=== PATIENT | female | born 1935 | race Caucasian/White ===

== ENCOUNTER 2017-01-15 01:52 | Emergency (ER) | payer OTHER ==
[~2017-01-15] VITALS: Ht 157.5 cm; Wt 64.8 kg
[2017-01-15 02:56] LABS: CHLORIDE 103 mEq/L (99-109); SODIUM 139 mEq/L (136-147)
[2017-01-15 02:58] LABS: GLUCOSE 116 mg/dL (70-99)
[2017-01-15 02:59] LABS: ANION GAP 14 MEQ/L (2-14)
[2017-01-15 03:00] LABS: TOTAL BILIRUBIN 0.7 mg/dL (0.0-1.0)
[2017-01-15 03:01] LABS: ALKALINE PHOSPHATASE 74 IU/L (3-129)
[2017-01-15 03:02] LABS: GFR ESTIMATE (CALCULATED) > 59 mL/min/
[2017-01-15 03:03] LABS: UREA NITROGEN (BUN) 19 mg/dL (9-23)
[2017-01-15 03:05] LABS: LIPASE 41 U/L (1.0-51.0)
[2017-01-15 03:06] LABS: HEMATOCRIT 32.1 % (36.0-46.0); MCH 32.7 PG (29.0-34.0); MCHC 33.6 G/DL (30.0-36.0); MCV 97.3 FL (83-99); MEAN PLAT.VOLUME 9.5 uM^3 (9.5-12.4); PLATELET COUNT 128 K/uL (156-360); RBC DIS.WIDTH-CV 12.3 % (11.8-14.6); RBC DIS.WIDTH-SD 44.3 % (39-53)
[2017-01-15 03:08] LABS: TROP-I INTERPRETATION NEGATIVE; TROPONIN-I < 0.01 ng/mL (0.0-0.30)
[2017-01-15 03:58] LABS: ADD MIUA? YES; BILIRUBIN NEGATIVE; BLOOD MODERATE; COLOR STRAW ((YELLOW)); GLUCOSE (STRIP) NEGATIVE; KETONES NEGATIVE; LEUKOCYTES NEGATIVE; NITRITE NEGATIVE; PROTEIN (STRIP) NEGATIVE; UROBILINOGEN 0.2 MG/DL (0.2-1.0)
[2017-01-15 04:00] LABS: BACTERIA NONE SEEN /HPF; EPITHELIAL CELLS NONE SEEN /HPF; MUCUS NONE SEEN /LPF; RED BLOOD CELLS 0-5 /HPF (0-5); UCUL ADDED? NO; WHITE BLOOD CELLS 0-5 /HPF (0-5)
[2017-01-15 05:33] VITALS: BP 134/99
[2017-01-15] MEDS ORDERED: UNABLE TO OBTAIN (05:34)
== END 2017-01-15 05:40 | disposition home or self-care (01) ==
LOC: EME 01:52
PROVIDERS: Emergency Medicine
DX: K29.00 Acute gastritis without bleeding (principal); D64.9 Anemia, unspecified; I10 Essential (primary) hypertension; K21.9 Gastro-esophageal reflux disease without esophagitis; Z85.3 Personal history of malignant neoplasm of breast; Z85.42 Personal history of malignant neoplasm of other parts of uterus; Z90.710 Acquired absence of both cervix and uterus
CPT/HCPCS: 71020; 74177; 80053; 81003; 83605; 83690; 84484; 85027; 93005; 99281; 99285; J7030; S0028

== ENCOUNTER 2017-01-24 05:52 | Inpatient (IN) | payer OTHER ==
[~2017-01-24] VITALS: Ht 157.5 cm; Wt 63.1 kg
[~2017-01-24 05:52] MED LIST: UNABLE TO OBTAIN
[2017-01-24 06:43] LABS: HEMATOCRIT 35.8 % (36.0-46.0); MCH 33.2 PG (29.0-34.0); MCHC 33.8 G/DL (30.0-36.0); MCV 98.4 FL (83-99); MEAN PLAT.VOLUME 10.5 uM^3 (9.5-12.4); PLATELET COUNT 119 K/uL (156-360); RBC DIS.WIDTH-CV 12.5 % (11.8-14.6); RBC DIS.WIDTH-SD 45.3 % (39-53); RED BLOOD COUNT 3.64 M/uL (3.80-5.20); WHITE BLOOD COUNT 12.3 K/uL (4.1-10.2)
[2017-01-24 07:04] LABS: AMYLASE 44 IU/L (1-118); ANION GAP 13 MEQ/L (2-14); CHLORIDE 101 MEQ/L (99-109); POTASSIUM 3.6 MEQ/L (3.7-5.4); SAMPLE HEMOLYSIS CHECK 0; SAMPLE ICTERIC CHECK 1; SAMPLE LIPEMIA CHECK 0; SODIUM 136 MEQ/L (136-147); TOTAL BILIRUBIN 3.9 MG/DL (0.0-1.0)
[2017-01-24 07:10] LABS: ALKALINE PHOSPHATASE 149 IU/L (3-129); GFR ESTIMATE (CALCULATED) > 59 mL/min/; GLUCOSE 133 mg/dL (70-99); LIPASE 9 U/L (1.0-51.0); UREA NITROGEN (BUN) 11 mg/dL (9-23)
[2017-01-24 07:14] LABS: TROP-I INTERPRETATION NEGATIVE; TROPONIN-I 0.05 ng/mL (0.0-0.30)
[2017-01-24 07:50] LABS: ADD MIUA? YES; BILIRUBIN NEGATIVE; BLOOD MODERATE; COLOR AMBER ((YELLOW)); GLUCOSE (STRIP) NEGATIVE; KETONES 5; LEUKOCYTES NEGATIVE; NITRITE NEGATIVE; PROTEIN (STRIP) 30; SPECIFIC GRAVITY 1.015 (1.000-1.030)
[2017-01-24 08:06] LABS: BACTERIA RARE /HPF; EPITHELIAL CELLS RARE /HPF; MUCUS TRACE /LPF; RED BLOOD CELLS 20-30 /HPF (0-5); UCUL ADDED? NO; WHITE BLOOD CELLS NONE SEEN /HPF (0-5)
[2017-01-24] MEDS ORDERED: LEVOTHYROXINE75 MCG PO (10:20)
[2017-01-24] MEDS ORDERED: OMEPRAZOLE20 MG PO (10:21)
[2017-01-24] MEDS ORDERED: METOPROLOL SUCC25 MG PO (10:22)
[2017-01-24] MEDS ORDERED: AMLODIPINE BESYL5 MG PO (10:23)
[2017-01-24] MEDS ORDERED: VITAMIN B-12500 MC5 SL (10:29)
[2017-01-24 11:19] VITALS: BP 121/58
[2017-01-24 12:12] VITALS: BP 121/58
[2017-01-24 13:55] LABS: TROP-I INTERPRETATION NEGATIVE; TROPONIN-I 0.06 ng/mL (0.0-0.30)
[2017-01-24 17:36] VITALS: BP 128/54
[2017-01-24 19:27] LABS: TROP-I INTERPRETATION NEGATIVE; TROPONIN-I 0.03 ng/mL (0.0-0.30)
[2017-01-24 20:08] VITALS: BP 147/68
[2017-01-25 00:11] VITALS: BP 101/56
[2017-01-25 03:46] VITALS: BP 110/53
[2017-01-25 05:35] LABS: POINT-OF-CARE METER ID UU14208750
[2017-01-25 07:12] LABS: HEMATOCRIT 30.8 % (36.0-46.0); MCH 34.1 PG (29.0-34.0); MCHC 33.8 G/DL (30.0-36.0); MEAN PLAT.VOLUME 10.5 uM^3 (9.5-12.4); PLATELET COUNT 118 K/uL (156-360); RBC DIS.WIDTH-CV 13.1 % (11.8-14.6); RBC DIS.WIDTH-SD 48.6 % (39-53); RED BLOOD COUNT 3.05 M/uL (3.80-5.20); WHITE BLOOD COUNT 9.4 K/uL (4.1-10.2)
[2017-01-25 07:33] VITALS: BP 118/56
[2017-01-25 07:39] LABS: ALKALINE PHOSPHATASE 128 IU/L (3-129); ANION GAP 10 MEQ/L (2-14); CHLORIDE 108 MEQ/L (99-109); DIRECT BILIRUBIN 1.8 mg/dL (0.0-0.3); GFR ESTIMATE (CALCULATED) > 59 mL/min/; GLUCOSE 81 mg/dL (70-99); POTASSIUM 4.1 MEQ/L (3.7-5.4); SAMPLE HEMOLYSIS CHECK 0; SAMPLE ICTERIC CHECK 1; SAMPLE LIPEMIA CHECK 0; SODIUM 140 MEQ/L (136-147); UREA NITROGEN (BUN) 14 mg/dL (9-23)
[2017-01-25 11:35] VITALS: BP 138/63
[2017-01-25 12:09] LABS: POINT-OF-CARE METER ID UU14208750
[2017-01-25 15:23] VITALS: BP 127/60
[2017-01-25 19:25] VITALS: BP 131/62
[2017-01-26 00:36] VITALS: BP 132/66
[2017-01-26 03:33] VITALS: BP 117/56
[2017-01-26 07:57] VITALS: BP 100/64
[2017-01-26 08:15] LABS: EOSINOPHIL COUNT 0.2 K/uL (0-0.3); HEMATOCRIT 32.8 % (36.0-46.0); IMMATURE GRANULOCYTE (%) 0.3 % (0.0-0.7); INSTRUMENT ABS NEUTROPHIL CT 5.3 K/uL; LYMPHOCYTE COUNT 0.8 K/uL (1.0-2.8); MCHC 32.9 G/DL (30.0-36.0); MCV 100.3 FL (83-99); MEAN PLAT.VOLUME 10.3 uM^3 (9.5-12.4); MONOCYTE (%) 7.4 % (3-12); MONOCYTE COUNT 0.5 K/uL (0-0.8); NEUTROPHIL (%) 76.8 % (45-76); NEUTROPHIL COUNT 5.3 K/uL (1.8-6.4); PLATELET COUNT 151 K/uL (156-360); RBC DIS.WIDTH-CV 13.1 % (11.8-14.6); RBC DIS.WIDTH-SD 48.2 % (39-53); RED BLOOD COUNT 3.27 M/uL (3.80-5.20); WHITE BLOOD COUNT 6.9 K/uL (4.1-10.2)
[2017-01-26 08:39] LABS: ALKALINE PHOSPHATASE 112 IU/L (3-129); ANION GAP 8 MEQ/L (2-14); CHLORIDE 107 MEQ/L (99-109); GFR ESTIMATE (CALCULATED) > 59 mL/min/; GLUCOSE 91 mg/dL (70-99); SAMPLE HEMOLYSIS CHECK 0; SAMPLE ICTERIC CHECK 0; SAMPLE LIPEMIA CHECK 0; SODIUM 141 MEQ/L (136-147); UREA NITROGEN (BUN) 9 mg/dL (9-23)
[2017-01-26 11:26] VITALS: BP 102/60
[2017-01-26] MEDS ORDERED: CIPRO250 MG PO (13:43)
[2017-01-26] MEDS ORDERED: FLAGYL500 MG PO (13:44)
[2017-01-26 14:20] LABS: BACTERIA NONE SEEN /HPF; EPITHELIAL CELLS RARE /HPF; MUCUS NONE SEEN /LPF; RED BLOOD CELLS 0-5 /HPF (0-5); WHITE BLOOD CELLS 0-5 /HPF (0-5)
== END 2017-01-26 14:48 | disposition home or self-care (01) | DRG 446 ==
LOC: EME 05:52 → EDOF 09:26 → 2EAST 09:26 → ENRESERV 09:30 → EDOF 09:35 → ENRESERV 10:12 → 2EASTP 10:58 → 2EAST 01-25 02:19
PROVIDERS: Hospitalist; Internal Medicine; Nurse Practitioner Family; Physician Assistant; Surgery
DX: K80.00 Calculus of gallbladder with acute cholecystitis without obstruction (principal); E87.6 Hypokalemia; D69.6 Thrombocytopenia, unspecified; I11.9 Hypertensive heart disease without heart failure; I35.0 Nonrheumatic aortic (valve) stenosis; R74.0 Nonspecific elevation of levels of transaminase and lactic acid dehydrogenase [LDH]; R94.31 Abnormal electrocardiogram [ECG] [EKG]; K21.9 Gastro-esophageal reflux disease without esophagitis; E03.9 Hypothyroidism, unspecified; Z23 Encounter for immunization; Z85.3 Personal history of malignant neoplasm of breast; Z85.42 Personal history of malignant neoplasm of other parts of uterus; Z87.442 Personal history of urinary calculi; Z90.12 Acquired absence of left breast and nipple; Z90.710 Acquired absence of both cervix and uterus; Z82.49 Family history of ischemic heart disease and other diseases of the circulatory system; Z82.5 Family history of asthma and other chronic lower respiratory diseases; Z80.3 Family history of malignant neoplasm of breast
CPT/HCPCS: 71020; 74177; 74181; 80048; 80053; 80076; 81003; 81015; 82150; 82607; 82746; 82948; 83690; 84484; 85025; 85027; 90686; 93005; 99281; 99285; J0744; J2270; J2405; J7030; S0030

== ENCOUNTER 2017-03-01 05:34 | Emergency (ER) | payer OTHER ==
[~2017-03-01] VITALS: Ht 157.5 cm; Wt 58.3 kg
[~2017-03-01 05:34] MED LIST changes: +AMLODIPINE BESYL5 MG PO; +CIPRO250 MG PO; +FLAGYL500 MG PO; +LEVOTHYROXINE75 MCG PO; +METOPROLOL SUCC25 MG PO; +OMEPRAZOLE20 MG PO; +VITAMIN B-12500 MC5 SL
[2017-03-01 06:14] LABS: HEMATOCRIT 31.8 % (36.0-46.0); MCH 33.1 PG (29.0-34.0); MCV 100.3 FL (83-99); PLATELET COUNT 110 K/uL (156-360); RBC DIS.WIDTH-CV 13.8 % (11.8-14.6); RBC DIS.WIDTH-SD 51.4 % (39-53); RED BLOOD COUNT 3.17 M/uL (3.80-5.20); WHITE BLOOD COUNT 5.4 K/uL (4.1-10.2)
[2017-03-01 06:29] LABS: GLUCOSE 105 mg/dL (70-99)
[2017-03-01 06:30] LABS: ANION GAP 11 MEQ/L (2-14)
[2017-03-01 06:31] LABS: TOTAL BILIRUBIN 0.8 mg/dL (0.0-1.0)
[2017-03-01 06:32] LABS: ALKALINE PHOSPHATASE 59 IU/L (3-129)
[2017-03-01 06:33] LABS: GFR ESTIMATE (CALCULATED) > 59 mL/min/
[2017-03-01 06:34] LABS: UREA NITROGEN (BUN) 10 mg/dL (9-23)
[2017-03-01 06:36] LABS: LIPASE 28 U/L (1.0-51.0)
[2017-03-01 06:39] LABS: ADD MIUA? YES; BILIRUBIN NEGATIVE; BLOOD LARGE; COLOR AMBER ((YELLOW)); GLUCOSE (STRIP) NEGATIVE; KETONES NEGATIVE; LEUKOCYTES NEGATIVE; NITRITE NEGATIVE; PROTEIN (STRIP) 100; SPECIFIC GRAVITY 1.016 (1.000-1.030); UROBILINOGEN 0.2 MG/DL (0.2-1.0)
[2017-03-01 06:48] LABS: TROP-I INTERPRETATION NEGATIVE; TROPONIN-I < 0.01 ng/mL (0.0-0.30)
[2017-03-01 07:02] LABS: EPITHELIAL CELLS 1+ /HPF
[2017-03-01 07:03] LABS: BACTERIA NONE SEEN /HPF; CASTS NONE SEEN /LPF; CRYSTALS NONE SEEN; MUCUS NONE SEEN /LPF; OTHER BUDDING YEAST FEW; RED BLOOD CELLS TNTC /HPF (0-5); UCUL ADDED? YES; WHITE BLOOD CELLS 0-5 /HPF (0-5)
[2017-03-01] MEDS ORDERED: PERCOCET 5/31 TABLET PO (07:34)
[2017-03-01] MEDS ORDERED: FLOMAX0.4 MG PO (07:34)
[2017-03-01] MEDS ORDERED: ZOFRAN ODT4 MG PO (07:34)
[2017-03-01 08:20] LABS: CHLORIDE 108 mEq/L (99-109); POTASSIUM 3.2 mEq/L (3.7-5.4); SODIUM 143 mEq/L (136-147)
[2017-03-01 08:36] VITALS: BP 111/52
== END 2017-03-01 08:59 | disposition home or self-care (01) ==
LOC: EME 05:34
DX: N20.0 Calculus of kidney (principal); K21.9 Gastro-esophageal reflux disease without esophagitis; I10 Essential (primary) hypertension
CPT/HCPCS: 74177; 80053; 81003; 83690; 84484; 85027; 87086; 99281; 99285; J2405; J3010; J7030

== ENCOUNTER 2017-08-15 02:00 | Observation (INO) | payer OTHER ==
[~2017-08-15] VITALS: Ht 157.5 cm; Wt 59.4 kg
[~2017-08-15 02:00] MED LIST changes: +AMLOD-VALSA-HC1 EAC2 PO; +ASPIRIN81 M2 PO; +FLOMAX0.4 MG PO; +PERCOCET 5/31 TABLET PO; +SENNA8.6 MG PO; +ZOFRAN ODT4 MG PO
[2017-08-15 02:47] LABS: BASOPHIL (%) 0.6 % (0-1); BASOPHIL COUNT 0.1 K/uL (0-0.1); EOSINOPHIL (%) 8.5 % (0-5); EOSINOPHIL COUNT 0.7 K/uL (0-0.3); HEMATOCRIT 25.9 % (36.0-46.0); HEMOGLOBIN 8.5 G/DL (11.9-15.5); IMMATURE GRANULOCYTE (%) 0.4 % (0.0-0.7); LYMPHOCYTE (%) 18.4 % (15-42); LYMPHOCYTE COUNT 1.5 K/uL (1.0-2.8); MCH 33.6 PG (29.0-34.0); MCHC 32.8 G/DL (30.0-36.0); MCV 102.4 FL (83-99); MONOCYTE (%) 8.3 % (3-12); MONOCYTE COUNT 0.7 K/uL (0-0.8); NEUTROPHIL (%) 63.8 % (45-76); NEUTROPHIL COUNT 5.4 K/uL (1.8-6.4); RBC DIS.WIDTH-CV 15.8 % (11.8-14.6); RBC DIS.WIDTH-SD 59.1 % (39-53); RED BLOOD COUNT 2.53 M/uL (3.80-5.20); WHITE BLOOD COUNT 8.4 K/uL (4.1-10.2)
[2017-08-15 02:56] LABS: ALBUMIN 3.6 g/dL (3.2-4.8); CHLORIDE 106 mEq/L (99-109); POTASSIUM 3.9 mEq/L (3.7-5.4); SODIUM 138 mEq/L (136-147)
[2017-08-15 02:58] LABS: GLUCOSE 105 mg/dL (70-99)
[2017-08-15 02:59] LABS: TOTAL PROTEIN 6.7 g/dL (6.4-8.3)
[2017-08-15 03:00] LABS: TOTAL BILIRUBIN 0.6 mg/dL (0.0-1.0)
[2017-08-15 03:02] LABS: ALKALINE PHOSPHATASE 76 IU/L (3-129); CREATININE 0.9 mg/dL (0.6-1.3); GFR ESTIMATE (CALCULATED) > 59 mL/min/
[2017-08-15 03:03] LABS: UREA NITROGEN (BUN) 25 mg/dL (9-23)
[2017-08-15 03:04] LABS: AST (GOT) 20 IU/L (2-34)
[2017-08-15 03:04] LABS: INTER. NORMALIZED RATIO 1.1
[2017-08-15 03:05] LABS: ALT (GPT) 10 IU/L (3-49)
[2017-08-15 03:06] LABS: PTT 31.5 SEC (25-37)
[2017-08-15 03:49] LABS: IMM.PLATELET FRACTION 4.2 (1-7); PLAT.SUFFICIENCY VERY DECREASED; PLATELET COUNT 46 K/uL (156-360)
[2017-08-15] MEDS ORDERED: ATARAX,VISTARIL25 MG PO (06:04)
[2017-08-15] MEDS ORDERED: CEPHALEXIN500 MG PO (06:05)
[2017-08-15 07:36] VITALS: BP 123/59
[2017-08-15 08:19] VITALS: BP 120/53
[2017-08-15 11:00] VITALS: BP 145/71
[2017-08-15] MEDS ORDERED: B-121000 MC2 PO (12:38)
[2017-08-15] MEDS ORDERED: CALCIUM 600 +1 EA12 PO (12:38)
[2017-08-15] MEDS ORDERED: ONCE DAILY1 EACH PO (12:38)
[2017-08-15 16:46] VITALS: BP 137/74
[2017-08-15 20:00] VITALS: BP 126/68
[2017-08-15 23:19] VITALS: BP 101/50
[2017-08-16 07:21] VITALS: BP 116/58
[2017-08-16 11:56] VITALS: BP 125/74
[2017-08-16 17:45] LABS: BASOPHIL COUNT 0.1 K/uL (0-0.1); EOSINOPHIL (%) 9.9 % (0-5); EOSINOPHIL COUNT 0.8 K/uL (0-0.3); HEMATOCRIT 27.4 % (36.0-46.0); HEMOGLOBIN 8.9 G/DL (11.9-15.5); IMMATURE GRANULOCYTE (%) 0.3 % (0.0-0.7); LYMPHOCYTE COUNT 1.6 K/uL (1.0-2.8); MCH 33.2 PG (29.0-34.0); MCHC 32.5 G/DL (30.0-36.0); MCV 102.2 FL (83-99); MONOCYTE (%) 8.2 % (3-12); MONOCYTE COUNT 0.7 K/uL (0-0.8); NEUTROPHIL (%) 60.6 % (45-76); NEUTROPHIL COUNT 4.8 K/uL (1.8-6.4); PLATELET COUNT 58 K/uL (156-360); RBC DIS.WIDTH-SD 58.6 % (39-53); RED BLOOD COUNT 2.68 M/uL (3.80-5.20); WHITE BLOOD COUNT 7.9 K/uL (4.1-10.2)
[2017-08-16] MEDS ORDERED: DIFLUCAN200 MG PO (18:51)
[2017-08-16] MEDS ORDERED: CIPRO250 MG PO (18:52)
[2017-08-16 20:07] VITALS: BP 150/66
[2017-08-17 04:06] VITALS: BP 122/64
[2017-08-17 06:06] LABS: BASOPHIL (%) 0.8 % (0-1); BASOPHIL COUNT 0.1 K/uL (0-0.1); EOSINOPHIL (%) 9.7 % (0-5); EOSINOPHIL COUNT 0.7 K/uL (0-0.3); HEMATOCRIT 24.9 % (36.0-46.0); HEMOGLOBIN 8.1 G/DL (11.9-15.5); IMMATURE GRANULOCYTE (%) 0.1 % (0.0-0.7); LYMPHOCYTE (%) 15.5 % (15-42); LYMPHOCYTE COUNT 1.2 K/uL (1.0-2.8); MCH 33.1 PG (29.0-34.0); MCHC 32.5 G/DL (30.0-36.0); MCV 101.6 FL (83-99); MONOCYTE (%) 7.2 % (3-12); MONOCYTE COUNT 0.5 K/uL (0-0.8); NEUTROPHIL (%) 66.7 % (45-76); PLATELET COUNT 58 K/uL (156-360); RBC DIS.WIDTH-CV 15.8 % (11.8-14.6); RBC DIS.WIDTH-SD 59.1 % (39-53); RED BLOOD COUNT 2.45 M/uL (3.80-5.20); WHITE BLOOD COUNT 7.5 K/uL (4.1-10.2)
[2017-08-17 06:28] LABS: CHLORIDE 108 MEQ/L (99-109); CREATININE 0.8 MG/DL (0.6-1.3); GFR ESTIMATE (CALCULATED) > 59 mL/min/; GLUCOSE 92 mg/dL (70-99); SODIUM 139 MEQ/L (136-147); UREA NITROGEN (BUN) 24 mg/dL (9-23)
[2017-08-17 07:17] VITALS: BP 96/55
[2017-08-17] MEDS ORDERED: ATARAX,VISTARIL25 MG PO (09:35)
== END 2017-08-17 10:57 ==
LOC: EME 02:00 → EDOF 05:15 → 5WEST 05:15 → EDOF 05:15 → ENRESERV 05:16 → 5WEST 07:32
PROVIDERS: Internal Medicine; Nurse Practitioner Acute Care
DX: L73.8 Other specified follicular disorders (principal); R60.0 Localized edema; D69.6 Thrombocytopenia, unspecified; D50.9 Iron deficiency anemia, unspecified; E03.9 Hypothyroidism, unspecified; I35.0 Nonrheumatic aortic (valve) stenosis; Z95.2 Presence of prosthetic heart valve; I10 Essential (primary) hypertension; K44.9 Diaphragmatic hernia without obstruction or gangrene; K21.9 Gastro-esophageal reflux disease without esophagitis; Z85.3 Personal history of malignant neoplasm of breast; Z85.42 Personal history of malignant neoplasm of other parts of uterus; Z90.710 Acquired absence of both cervix and uterus; Z90.12 Acquired absence of left breast and nipple; Z79.82 Long term (current) use of aspirin
CPT/HCPCS: 80048; 80053; 85025; 85610; 85730; 93971; 99281; 99284; G0378; J0696; Q0177

== ENCOUNTER 2017-08-21 23:06 | Emergency (ER) | payer OTHER ==
[~2017-08-21] VITALS: Ht 157.5 cm; Wt 59.6 kg
[~2017-08-21 23:06] MED LIST changes: +ATARAX,VISTARIL25 MG PO; +B-121000 MC2 PO; +CALCIUM 600 +1 EA12 PO; +CEPHALEXIN500 MG PO; +DIFLUCAN200 MG PO; +ONCE DAILY1 EACH PO
[2017-08-22 01:38] VITALS: BP 111/71
== END 2017-08-22 01:38 | disposition home or self-care (01) ==
LOC: EME 23:06
DX: L30.9 Dermatitis, unspecified (principal); I10 Essential (primary) hypertension; K21.9 Gastro-esophageal reflux disease without esophagitis; F41.9 Anxiety disorder, unspecified; Z87.442 Personal history of urinary calculi; Z90.10 Acquired absence of unspecified breast and nipple; Z85.3 Personal history of malignant neoplasm of breast; Z85.42 Personal history of malignant neoplasm of other parts of uterus; Z79.82 Long term (current) use of aspirin
CPT/HCPCS: 99281; 99284